=== PATIENT | female | born 1950 | race Caucasian/White ===

== ENCOUNTER → 2016-10-24 | Outpatient (CLI) | payer BC ==
[~2016-10-24] MED LIST: ATENOLOL25 MG PO; BAYER CHEWABLE81 MG PO; BUFFERIN EX ST500 MG PO; CALCIUM 5001 TAB PO; CLOPIDOGREL75 MG PO; IMDUR-ER30 M2 PO; LASIX20 MG PO; LIPITOR40 MG PO; METOPROLOL TAR25 MG PO; NITROSTAT0.4 MG SL; OXAZEPAM10 MG PO; VITAMIN D400 UNI1 PO
--- NOTE | ~2016-10-24 | US85 ---
[facility] A Service of [facility] & [facility] / [facility] RADIOLOGY TEXT RESULTS PATIENT: NANCY ANGELA LOCATION: CNIV : 52 UNIT #: [id number] AGE: [address]: Chiki Romano MD SEX: F ORDER DR: [id number] [facility] [address] [place], [place] [address] [id number] O MR#: [id number] Acc #: [id number] NAME: NANCY ANGELA : 1950 SEX: F STUDY DATE/TIME: 10/24/2016 12:04 UNIT: CNIV ROOM: STUDY DESCRIPTION: [facility] Attending Physician: Chiki Romano M.D. Referring Physician: Chiki Romano M.D. Ordering Physician: Chiki Romano M.D. [facility] REPORT This report is preliminary unless electronic signature is present EXAM Right leg vein Doppler 10/24/2016 INDICATIONS Leg pain since June of this year when patient had a fall. TECHNIQUE Venous ultrasound examination of the right lower extremity was performed using grayscale, spectral Doppler and color flow Doppler imaging. FINDINGS The examination is negative. There is no evidence of right lower extremity deep venous thrombus from the groin to the lower calf. Visualized greater saphenous vein is also patent. IMPRESSION Negative examination. No evidence of right lower extremity deep venous thrombosis. Dictated by... Elier Milligan Jr., M.D. THIS IS AN ELECTRONICALLY VERIFIED REPORT Elier Milligan Jr., M.D. at 10/24/2016 4:47 PM BETTY/tanika TD: 10/24/2016 16:23 JOB #: [id number] MEDICAL IMAGING REPORT Page 1 of 1 COPY
== END | disposition home or self-care (01) ==
LOC: CNIV 10-23 11:30
DX: Z86.718 Personal history of other venous thrombosis and embolism (principal)
CPT/HCPCS: 93971